=== PATIENT | female | born 1990 | race Hispanic/Latino ===

== ENCOUNTER 2019-01-29 15:46 | Observation (INO) | payer OTHER ==
[~2019-01-29] VITALS: Ht 160 cm; Wt 137.2 kg
[2019-01-29 17:00] VITALS: BP 115/73
[2019-01-29 18:19] LABS: BASOPHILS % (AUTO) 0.9 % (0.0-5.0); EOSINOPHILS % (AUTO) 1.6 % (0.0-8.0); LYMPHOCYTES % (AUTO) 24.9 % (21.0-51.0); MEAN CORPUSCULAR HEMOGLOBIN 19.6 pg (27.0-33.0); MEAN CORPUSCULAR HGB CONC 31.1 g/dL (32.0-36.0); MEAN CORPUSCULAR VOLUME 63.1 fL (79-99); MONOCYTES % (AUTO) 3.7 % (3.0-13.0); NEUTROPHILS % (AUTO) 68.9 % (40.0-77.0); NUCLEATED RED BLOOD CELLS 0.2 % (0.0-0.19); PLATELET COUNT (AUTO) 342 K/uL (130-400); RED CELL DISTRIBUTION WIDTH 18.5 % (11.0-15.5); WHITE BLOOD COUNT (AUTO) 10.3 K/uL (4.8-10.8)
[2019-01-29 18:23] LABS: HEMATOCRIT 18.3 % (36-48)
[2019-01-29] MEDS ORDERED: FERSL PO (18:57)
[2019-01-29 19:29] VITALS: BP 145/79
[2019-01-29] MEDS: SODIUM CHLORIDE 0.9% 1000ML 1,000 ML IV SCH (21:17)
[2019-01-29 23:35] VITALS: BP 119/60
[2019-01-30 03:30] VITALS: BP 98/48
[2019-01-30 05:21] LABS: HEMATOCRIT 22.4 % (36-48)
[2019-01-30] MEDS: SODIUM CHLORIDE 0.9% 1000ML 1,000 ML IV SCH (06:36)
--- NOTE | 2019-01-30 08:00 | NUR ---
ASSESSMENT: RECEIVED RESTING IN BED, EXPLAINED POC AND UNDERSTANDING VERBALIZED, CALL [facility] AT HER SIDE. DENIES WEAKNESS OR DIZZINESS. COLOR PINK. STATES VAG BLEEDING LIGHT, NOTED SHARYN PAD WITH SM AMTS VAG BLEEDING.
[2019-01-30 08:05] VITALS: BP 122/50
--- NOTE | 2019-01-30 09:05 | NUR ---
ASSESSMENT: DR OMALLEY HERE, SBAR REPORT GIVEN . REVIEWED LABS AND ASSESSED PT AND DISCUSSED POC , WILL DISCHARGE HOME AFTER 1200 NOON. PT TO FOLLOW UP WITH HIM NEXT WEEK. UNDERSTANDING VERBALIZED AND AGREES WITH POC.
[2019-01-30] MEDS ORDERED: FLU VACC QS2019-20 36MOS UP/PF 60 MCG/0.5 ML ML IM SCH (09:15)
--- NOTE | 2019-01-30 09:45 | NUR ---
ACTIVITY: AMB IN HALLWAY
[2019-01-30 12:15] VITALS: BP 125/73
--- NOTE | 2019-01-30 12:20 | NUR ---
NUTRITION: EATING HER LUNCH.
--- NOTE | 2019-01-30 13:22 | NUR ---
DISCHARGE: DISCHARGE INSTRUCTIONS GIVEN TO PT ON SELF CARE POST BLOOD TRANSFUSION FOR SEVERE ANEMIA, MENORRHAGIA, DIETS TO FOLLOW. REVIEWED RX'S FOR HOME MEDS, TO CALL DR OMALLEY'S OFFICE FRIDAY AND MAKE FOLLOW UP APPT FOR 1 WEEK OR SOONER IF NEEDED. UNDERSTANDING VERBALIZED AND COPIES OF ALL INSTRUCTIONS GIVEN TO PT.
--- NOTE | 2019-01-30 13:45 | NUR ---
discharge: DISCHARGED HOME TO PRIVATE CAR WITH HER FAMILY.
== END 2019-01-30 13:45 | disposition home or self-care (01) ==
LOC: EDH 15:46 → WSH 15:47 → EDHIP 15:59 → UNDOADMOB 15:59
PROVIDERS: ADMIT Specialist; ATTEND Specialist
DX: N92.0 Excessive and frequent menstruation with regular cycle (principal); D64.9 Anemia, unspecified; Z23 Encounter for immunization
CPT/HCPCS: 36415 ×2; 36430; 85014; 85018; 85025; 85060; 86850; 86900; 86901; 86922; 90471; 99284; G0378 ×23; J7030; P9016 ×2; Q2035